=== PATIENT | female | born 1980 | race Caucasian/White ===

== ENCOUNTER 2016-10-26 07:07 | Inpatient (IN) | payer BC ==
[~2016-10-26] VITALS: Ht 157.5 cm; Wt 63.9 kg
[2016-10-26 07:23] VITALS: Ht 157.5 cm; Wt 63.9 kg
[2016-10-26] MEDS ORDERED: PRENAT PO (07:23)
[2016-10-26 07:24] VITALS: BP 114/77; PULSE 96; RESP 18
--- NOTE | 2016-10-26 09:00 | RADRPT ---
PROCEDURE: OB ultrasound for biophysical profile CLINICAL INDICATION: Bleeding. TECHNIQUE: Multiple sonographic images of the pelvis were obtained. Transabdominal view of the gr avid uterus are available for review. The images were reviewed on a PACS workstation. COMPARISON: None FINDINGS: breathing movement = 2/2 tone = 2/2 motion = 2/2 Quantitative amniotic fluid volume = 2/2 BARBIE = 11.7 cm Single live intrauterine with cardiac activity at 130 beats per minute. There is a posterior placenta without previa. IMPRESSION: 1. Single living intrauterine gestation in cephalic position. 2. Biophysical profile = 05/24. 3. BARBIE = 11.7 cm. RPTAT: [facility] Physician Anayeli Date Time Electronically viewed and signed by Paulo Mendoza Physician on 10/26/2016 08:48 /
--- NOTE | 2016-10-26 09:00 | RADRPT ---
PROCEDURE: US OB. CLINICAL INDICATION: bleeding TECHNIQUE: Multiple sonographic images of the pelvis and gravid uterus were obtained. The images were reviewed on a PACS workstation. COMPARISON: No prior studies are available for comparison. FINDINGS: There is a single viable intrauterine gestation. Cardiac activity is present with 129 beats per min sheila. There is a vertex presentation. The placenta is posterior. There is no evidence for an abruption or placenta previa. Measurements were made in order to determine age. The results are as follows: BPD =8.6 cm HC =31.9 cm AC =34.3 cm FL =7.1 cm Estimated gestational age of approximately 36 weeks and 2 days based on ultrasound measurements. Clinical age: 39 weeks and 2 days. The estimated date of delivery is 11/21/16, based on ultrasound measurements. The EFW = 3127 g, 20.7%, based on LMP age. RPTAT: AA IMPRESSION: Single viable intrauterine gestation of approximately 36 weeks and 2 days based on ultrasound measu rements. Smaller than clinical age by 3 weeks. .Delvin Farrar MD, Date Time Electronically viewed and signed by .Delvin Farrar MD, on 10/26/2016 08:45 .S/
[2016-10-26] MEDS ORDERED: METHYLERGONOVINE 0.2 MG INJ IM PRN (11:30)
[2016-10-26] MEDS ORDERED: MISOPROSTOL 200 MCG TAB PR PRN (11:30)
[2016-10-26] MEDS ORDERED: BUTORPHANOL 2 MG INJ IV PRN (11:30)
[2016-10-26] MEDS ORDERED: LIDOCAINE 1% (MPF) 30 ML INJ INJ PRN (11:30)
[2016-10-26] MEDS ORDERED: IBUPROFEN 600 MG TAB PO PRN (11:30)
[2016-10-26] MEDS ORDERED: CARBOPROST 250 MCG INJ IM PRN (11:30)
[2016-10-26] MEDS ORDERED: OXYTOCIN 30 UNITS/LR 500 ML IV SCH (11:30)
[2016-10-26] MEDS ORDERED: LACTATED RINGER'S 1,000 ML IV PRN (11:30)
[2016-10-26] MEDS ORDERED: AMPICILLIN 2 GM/NS (PMX) 100 ML IV ONE (11:30)
[2016-10-26] MEDS ORDERED: OXYTOCIN 30 UNITS/LR 500 ML IV PRN (11:30)
[2016-10-26] MEDS: LACTATED RINGER'S 1,000 ML IV SCH ×2 (11:52→19:15)
[2016-10-26 12:45] LABS: BASOPHIL # 0.1 10^3/ul (0.0-0.1); BASOPHILS % 0.8 % (0.0-2.0); EOSINOPHILS % 0.3 % (0.0-7.0); HEMOGLOBIN 10.7 g/dl (12.0-16.0); LYMPHOCYTES # 1.6 10^3/ul (0.8-2.9); LYMPHOCYTES % 12.7 % (15.0-51.0); MEAN CORPUSCULAR HEMOGLOBIN 27.4 pg (29.0-33.0); MEAN CORPUSCULAR HGB CONC 33.3 g/dl (32.0-37.0); MEAN CORPUSCULAR VOLUME 82.3 fl (82.0-101.0); MEAN PLATELET VOLUME 7.2 fl (7.4-10.4); MONOCYTE # 0.7 10^3/ul (0.3-0.9); MONOCYTES % 5.6 % (0.0-11.0); NEUTROPHIL # 10.5 10^3/ul (1.6-7.5); NEUTROPHILS % 80.6 % (39.0-77.0); PLATELET COUNT 222 10^3/UL (140-440); RED BLOOD COUNT 3.89 10^6/ul (4.20-5.40); RED CELL DISTRIBUTION WIDTH 14.9 % (11.5-14.5)
[2016-10-26 12:52] LABS: INR 0.91; PROTIME 12.3 Sec (12.2-14.2)
[2016-10-26 12:53] LABS: PARTIAL THROMBOPLASTIN TIME 24.6 Sec (25.0-35.0)
[2016-10-26 12:54] LABS: CONDITION 1; LH ANALYZER COMMENTS 1
[2016-10-26 13:13] LABS: BARBITURATES Negative (NEGATIVE)
[2016-10-26 13:15] LABS: BENZODIAZEPINES Negative (NEGATIVE)
[2016-10-26 13:19] LABS: CANNABINOIDS Negative (NEGATIVE); COCAINE Negative (NEGATIVE); OPIATES Negative (NEGATIVE)
[2016-10-26] MEDS: AMPICILLIN 1 GM/NS (PMX) 50 ML IV SCH ×3 (16:30→23:22)
[2016-10-26] MEDS ORDERED: FENTAnyl 2MCG/ML-ROPIV 0.2% 100 ML ONE (23:57)
[2016-10-27] MEDS ORDERED: OXYTOCIN 30 UNITS/LR 500 ML IV SCH
[2016-10-27] MEDS: AMPICILLIN 1 GM/NS (PMX) 50 ML IV SCH ×6 (04:01→23:09)
[2016-10-27] MEDS: LACTATED RINGER'S 1,000 ML IV SCH ×4 (04:03→21:59)
[2016-10-27] MEDS: FENTAnyl 2MCG/ML-ROPIV 0.2% 100 ML BAG EPI SCH ×2 (10:12→19:06)
[2016-10-27] MEDS ORDERED: NALOXONE (0.4 MG/ML) INJ IV PRN (10:30)
[2016-10-28] MEDS: FENTAnyl 2MCG/ML-ROPIV 0.2% 100 ML BAG EPI SCH ×2 (02:49→09:59)
[2016-10-28] MEDS: AMPICILLIN 1 GM/NS (PMX) 50 ML IV SCH ×3 (03:23→11:44)
[2016-10-28] MEDS: LACTATED RINGER'S 1,000 ML IV SCH (07:03)
[2016-10-28] MEDS: OXYTOCIN 30 UNITS/LR 500 ML IV SCH (14:45)
--- NOTE | 2016-10-28 15:14 | HP ---
Date/Time of Note Date/Time of Note DATE: 10/28/16 TIME: 15:07 OB - History Hx of Present Free Text/Dictation 36 y.o primigravida at 39w2d came with c/o vaginal bleeding VE FTP 70 -3 BPP8/8 PT RATHER STAY FOR DELIVERY ADMITTED FOR AUGMENTATION F GBS POS Chief Complaint: VAGINAL BLEEDING Estimated Due Date: Oct 31, 2016 : 1 Para: 0 Spontaneous : 0 Therapeutic : 0 Care: Good Care Ultrasounds: Normal mid trimester US Obstetrical Complications: None Medical Complications: None Past Family/Social History * Past Medical, Surgical, Family and Obstetric Histories reviewed from chart. Blood Type: A+ Rubella: immune RPR/VDRL: Negative GBS Status: Positive HBsAG: Negative OB Admission Exam Vital Signs Vital Signs Vital Signs Date Time Temp Pulse Resp B/P Pulse Ox O2 Delivery O2 Flow Rate FiO2 10/26/16 07:24 97.7 96 18 114/77 Room Air Physical Exam HEENT: WNL Heart: Rhythm Normal Lungs: Clear, Equal Abdomen: WNL Extremities: Normal Reflexes: Normal Effacement: 75% Station: -3 Membranes: Intact Amniotic Fluid: Unevaluable Accelerations: Accelerations Present Decelerations: No Decelerations Varibility: Moderate Contractions on Admission: < 5 Minutes Apart Intensity: Mild Last 72 hours Lab Results CBC & BMP 10/26/16 12:09 OB Assessment/Plan Reason for admission: other (IN EARLY LABOR) Induction Method: per Pitocin Protocol Other plan: AMPICILLIN WILLIAM LEYVA MD Oct 28, 2016 15:14
--- NOTE | 2016-10-28 15:17 | LDN ---
Date/Time of Note Date/Time of Note DATE: 10/28/16 TIME: 15:14 Delivery Summary Placenta Delivered: Spontaneously Meconium: none, Thick Perineum intact?: No Perineal laceration: 2 Perineal laceration repair: REPAIR [id number] GUT Anesthesia type: Local Estimated blood loss: 100 Sponge & Needle done & correct: Yes All needle counts correct: Yes Any foreign bodies felt in the: No Problems: Delivery Information Sex Infant Sex: male Apgars 1 Minute: 8 5 Minute: 9 Suctioning Nose & mouth suctioned at mackenzie: Yes Delee suction performed: No Umbilical Cord Umbilical cord with: 3 Vessels Cord presentations: no nuchal cord Cord Blood was obtained: Yes Mother & Baby Disposition Disposition Mom & Baby to Maternity; Good: Yes Mom transferred to: Other Baby to NICU: No () WILLIAM LEYVA MD Oct 28, 2016 15:17
[2016-10-28] MEDS ORDERED: OXYTOCIN 30 UNITS/LR 500 ML IV PRN (16:00)
[2016-10-28] MEDS ORDERED: MISOPROSTOL 200 MCG TAB PR PRN (16:00)
[2016-10-28] MEDS ORDERED: CARBOPROST 250 MCG INJ IM PRN (16:00)
[2016-10-28] MEDS ORDERED: BENZOCAINE 20% 56 ML SPRAY TOP PRN (16:00)
[2016-10-28] MEDS ORDERED: OXYCODONE/ASPIRIN (4.88/325) TAB PO PRN (16:00)
[2016-10-28] MEDS ORDERED: ZOLPIDEM 5 MG TAB PO PRN (16:00)
[2016-10-28] MEDS ORDERED: LANOLIN 7 GM TUBE TOP PRN (16:00)
[2016-10-28] MEDS ORDERED: WITCH HAZEL/GLYCERIN PAD PR PRN (16:00)
[2016-10-28] MEDS ORDERED: METHYLERGONOVINE 0.2 MG INJ IM PRN (16:00)
--- NOTE | 2016-10-28 16:07 | OPRPT ---
Intraop Record Datetime Report Generated by CPN: 10/28/2016 16:07 Datetime: 10/26/2016 07:28 Food Allergies/Reactions: NONE Latex Allergies/Reactions: No Latex Allergies Datetime: 10/26/2016 07:23 Drug Allergies/Reactions: sulfabenzamide/MN (10/26/2016)
--- NOTE | 2016-10-28 16:07 | DELSUM ---
Delivery Summary A-C Datetime Report Generated by CPN: 10/28/2016 16:07 DELIVERY PERSONNEL Barrel Raiser: [place], [place] MATERNAL INFORMATION Delivery Anesthesia: Epidural Medications in Delivery: 30 UNITS PITOCIN Estimated Blood Loss (ml): 300 Placenta Cultured: No Maternal Complications: None; Other RN Comments: + gbs tx with antibiotics, ALLERGIC TO SULFA, ANXIOUS, LABOR SUMMARY EDC: 10/31/2016 00:00 No. Babies in Womb: 1 Attempted: No Labor Anesthesia: Epidural LABOR INFORMATION Reason for Induction: Not Applicable Onset of Labor: 10/26/2016 04:30 Complete Dilatation: 10/28/2016 10:53 Oxytocin: Augmentation Group B Beta Strep: Positive Antibiotics # of Doses: 13X Antibiotics Time of Last Dose: 11:30 Steroids Given: None Reason Steroids Not Administered: Not Applicable MEMBRANES Membranes Rupture Method: Spontaneous Rupture of Membranes: 10/28/2016 10:53 Length of Rupture (hr): 3.45 Amniotic Fluid Color: Clear Amniotic Fluid Color: Clear Amniotic Fluid Amount: Small Amniotic Fluid Amount: Moderate Amniotic Fluid Odor: Normal Amniotic Fluid Odor: Normal STAGES OF LABOR Stage 1 hr: 54 Stage 1 min: 23 Stage 2 hr: 3 Stage 2 min: 27 Stage 3 hr: 0 Stage 3 min: 5 Total Time in Labor hr: 57 Total Time in Labor min: 55 VAGINAL DELIVERY Episiotomy: None Laceration Extension: Second Degree Laceration Type: Perineal Initial Vag Sponge Count: 20 Final Vag Sponge Count: 20 Initial Vag Sharps Count: 1 Final Vag Sharps Count: 1 Sponge Count Correct: Yes Sharps Count Correct: Yes BABY A INFORMATION Delivery Date/Time: 10/28/2016 14:20 Method of Delivery: Vaginal Born in Route : No : N/A Forceps: N/A Vacuum Extraction: N/A Shoulder Dystocia : N/A SHOULDER DYSTOCIA BABY A Delivery Date/Time: 10/28/2016 14:20 PRESENTATION/POSITION BABY A Presentation: Cephalic Presentation: Cephalic Presentation: Cephalic Presentation: Cephalic Presentation: Cephalic Presentation: Cephalic Presentation: Cephalic Presentation: Cephalic Presentation: Cephalic Cephalic Presentation: Vertex Vertex Position: Left Occipital Anterior Breech Presentation: N/A PLACENTA INFORMATION BABY A Placenta Delivery Time : 10/28/2016 14:25 Placenta Method of Delivery: Spontaneous Placenta Status: Delivered SCORES BABY A Heart Rate 1 min: >100 bpm Resp Effort 1 min: Good Cry Reflex Irritability 1 min: Cough/Sneeze/Pulls Away Muscle Tone 1 min: Active Motion Color 1 min: Body [place], Extremit Blue Resuscitation Effort 1 min: Tactile Stimulation; Oxygen SCORE 1 MIN: 9 Heart Rate 5 min: >100 bpm Resp Effort 5 min: Good Cry Reflex Irritability 5 min: Cough/Sneeze/Pulls Away Muscle Tone 5 min: Active Motion Color 5 min: Body [place], Extremit Blue Resuscitation Effort 5 min: Tactile Stimulation; Oxygen SCORE 5 MIN: 9 INFORMATION BABY A Gestational Age at Delivery: 39.4 Gestational Status: Full Term- 39- 40.6 Weeks Infant Outcome : Liveborn Condition : Stable Sex: Male IDENTIFICATION/MEDS BABY A ID Band Number: [id number] ID Band Location: Right Leg; Left Arm Sensor Applied: Yes Sensor Number: [id number] Sensor Location : Cord Clamp Vitamin K Given : Not Given Erythromycin Given: Not Given WEIGHT/LENGTH BABY A Infant Birthweight (gm): 3275 Infant Weight (lb): 7 Infant Weight (oz): 4 Length (in): 19.75 Infant Length (cm): 50.17 CORD INFORMATION BABY A No. 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
[2016-10-28 16:30] VITALS: BP 132/79; PULSE 76; RESP 20
[2016-10-28 17:30] VITALS: BP 134/83; PULSE 84; RESP 20
[2016-10-28] MEDS: IBUPROFEN 600 MG TAB PO SCH (18:00)
[2016-10-28 19:45] VITALS: BP 127/70; PULSE 82; RESP 18
[2016-10-28] MEDS: SENNA/DOCUSATE NA (8.6MG/50MG) TAB PO SCH (21:08)
[2016-10-29] VITALS: BP 99/66; PULSE 78; RESP 16
[2016-10-29] MEDS: OXYCODONE/ASPIRIN (4.88/325) TAB PO PRN ×4 (00:06→20:58)
[2016-10-29] MEDS: IBUPROFEN 600 MG TAB PO SCH ×4 (00:06→17:14)
[2016-10-29 03:45] VITALS: BP 110/59; PULSE 82; RESP 16
[2016-10-29 07:30] LABS: BASOPHILS % 0.1 % (0.0-2.0); EOSINOPHILS # 0.1 10^3/ul (0.0-0.5); EOSINOPHILS % 0.8 % (0.0-7.0); HEMATOCRIT 25.8 % (37.0-47.0); HEMOGLOBIN 8.6 g/dl (12.0-16.0); LYMPHOCYTES # 1.7 10^3/ul (0.8-2.9); LYMPHOCYTES % 11.5 % (15.0-51.0); MEAN CORPUSCULAR HEMOGLOBIN 27.2 pg (29.0-33.0); MEAN CORPUSCULAR HGB CONC 33.2 g/dl (32.0-37.0); MEAN CORPUSCULAR VOLUME 82.1 fl (82.0-101.0); MEAN PLATELET VOLUME 7.3 fl (7.4-10.4); MONOCYTE # 1.2 10^3/ul (0.3-0.9); NEUTROPHIL # 11.5 10^3/ul (1.6-7.5); NEUTROPHILS % 79.6 % (39.0-77.0); PLATELET COUNT 153 10^3/UL (140-440); RED BLOOD COUNT 3.14 10^6/ul (4.20-5.40); RED CELL DISTRIBUTION WIDTH 15.5 % (11.5-14.5); UNCORRECTED WBC 14.4 10^3/ul (4.8-10.8); WHITE BLOOD COUNT 14.4 10^3/ul (4.8-10.8)
[2016-10-29 07:34] LABS: CONDITION 1; LH ANALYZER COMMENTS 1
[2016-10-29 08:30] VITALS: BP 107/72; PULSE 60; RESP 18
[2016-10-29] MEDS: SENNA/DOCUSATE NA (8.6MG/50MG) TAB PO SCH ×2 (08:38→20:58)
--- NOTE | 2016-10-29 10:35 | PN ---
Date/Time of Note Date/Time of Note DATE: 10/29/16 TIME: 10:33 OB Subjective Subjective Subjective c/o thigh discomfort but no calf pain OB Objective Objective Objective vss affebrile fundus firm lochia min ext no calf tenderness OB Assessment/Plan Other Assessment: stable pst normal vaginal delivery Other plan: d/s home in am WILLIAM LEYVA MD Oct 29, 2016 10:35
[2016-10-30] MEDS: IBUPROFEN 600 MG TAB PO SCH ×3 (00:30→12:16)
[2016-10-30 04:20] VITALS: BP 121/72; PULSE 68; RESP 18
[2016-10-30 08:00] VITALS: BP 128/87; PULSE 78; RESP 18
[2016-10-30] MEDS ORDERED: DIPHTH/TET/ACEL PERTUSS (ADULT) 0.5 ML VIAL IM* ONE (09:00)
[2016-10-30] MEDS: SENNA/DOCUSATE NA (8.6MG/50MG) TAB PO SCH (09:01)
--- NOTE | 2016-10-30 11:54 | PD.PPDC ---
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
--- NOTE | 2016-10-30 12:03 | DS ---
Date/Time of Note Date/Time of Note DATE: 10/30/16 TIME: 11:58 Obstetrical Discharge Record Final Diagnosis Final Diagnosis: Term delivered Vaginal Delivery Obstetrical Delivery: Spontaneous, Laceration, Repaired Complications Augmentation: No Condition on Discharge Physical Assessment Last Vitals: vss afebrile Voiding: Yes Bowel Movement: Yes Fundus: Firm Calf Tenderness: No Patient Condition: Stable WILLIAM LEYVA MD Oct 30, 2016 12:03
[2016-10-31] MEDS ORDERED: INFLUENZA VIRUS VACCINE 0.5 ML (DISPENSING) IM* ONE (09:00)
== END 2016-10-30 16:00 | disposition home or self-care (01) | DRG 775 ==
LOC: L-D 07:07 → OBT 07:07 → L-D 11:15 → PP1 10-28 16:38
PROVIDERS: ADMIT Obstetrics & Gynecology; ATTEND Obstetrics & Gynecology
PROC: 10E0XZZ Delivery of Products of Conception, External Approach (ICD-10-PCS; principal; 2016-10-28)
PROC: 0KQM0ZZ Repair Perineum Muscle, Open Approach (ICD-10-PCS; 2016-10-28)
PROC: 3E00X4Z Introduction of Serum, Toxoid and Vaccine into Skin and Mucous Membranes, External Approach (ICD-10-PCS; 2016-10-30)
DX: O70.1 Second degree perineal laceration during delivery (principal); Z37.0 Single live birth; Z23 Encounter for immunization; Z3A.39 39 weeks gestation of pregnancy
CPT/HCPCS: 62319; 76815; 76818; 80307; 85025; 85610; 85730; 86592; 86900; 86901; 90715; G0463; J0290; J2590; J3010; J7120

== ENCOUNTER 2018-01-24 03:15 | Inpatient (IN) | END 2018-01-26 12:25 | disposition home or self-care (01) | DRG 775 ==

== ENCOUNTER 2018-05-12 10:48 | Day surgery (SDC) | END 2018-05-12 14:30 | disposition home or self-care (01) ==